=== PATIENT | male | born 1970 | race Caucasian/White ===

== ENCOUNTER 2017-06-20 08:28 | Emergency (ER) | payer SELFPAY ==
[2017-06-20] MEDS ORDERED: NS 0.9% 1000 ML* 2,000 ML IV ONE (09:02)
[2017-06-20 09:21] LABS: Hematocrit 61 % (42-52); Hemoglobin 21.7 g/dl (14.0-18.0); Mean Corpuscular HGB Conc 36 g/dl (31-36); Mean Corpuscular Hemoglobin 34 pg (27-31); Mean Corpuscular Volume 94 fL (80-94); Mean Platelet Volume 8 um3 (7.4-10.4); Red Blood Count 6.47 10^6/ul (4.0-5.4); Red Cell Distribution Width 13 % (10.5-15); White Blood Count 12.6 10^3/ul (3.5-10.8)
[2017-06-20 09:23] LABS: Add Diff/Slide Review? Slide Review Added; Comments Flag Yes
[2017-06-20 09:36] LABS: Troponin I 0.01 ng/mL (<0.04)
[2017-06-20 09:37] LABS: Albumin 5.1 g/dL (3.2-5.2); C Reactive Protein 15.76 mg/L (< 5.00); Calcium 10.7 mg/dL (8.6-10.3); Globulin 4.2 g/dL (2-4); Potassium 4.3 mmol/L (3.5-5.0); Total Bilirubin 0.7 mg/dL (0.2-1.0); Total Protein 9.3 g/dL (6.4-8.9)
[2017-06-20] MEDS ORDERED: Iohexol 300* (CONTRAST) 10 ML SDV IV ONE (10:10)
--- NOTE | 2017-06-20 10:23 | RAD ---
HISTORY: Subacute trauma, right-sided chest pain and vomiting COMPARISONS: None TECHNIQUE: Multiple contiguous axial CT scans were obtained of the chest, abdomen, and pelvis after the administration of intravenous contrast. Coronal and sagittal multiplanar reformations are submitted for review.. Oral contrast was not administered. Delayed images were obtained through the abdomen and pelvis. FINDINGS: CHEST NECK AND THYROID: The lower neck and thyroid are unremarkable. CHEST WALL: There is no lower cervical, axillary, or supraclavicular lymphadenopathy by size criteria. HEART AND PERICARDIUM: The heart is unremarkable. AORTA AND PULMONARY VASCULATURE: The aorta and pulmonary vasculature are normal. MEDIASTINUM: There is no mediastinal lymphadenopathy by size criteria. ARMANDO: There is no hilar lymphadenopathy by size criteria. AIRWAY AND ESOPHAGUS: The airway is unremarkable, without endobronchial filling defect. The esophagus is grossly normal. LUNG PARENCHYMA: The lungs are clear. PLEURA: No pleural abnormalities are noted. BONES AND SOFT TISSUES: No bone or soft tissue abnormalities are noted. ABDOMEN/PELVIS: LIVER: The liver is normal in shape, size, contour, and attenuation. BILE DUCTS: There is no intrahepatic or extrahepatic biliary dilatation. GALLBLADDER: The gallbladder is normal, without pericholecystic inflammatory change. PANCREAS: The pancreas is normal, without mass or ductal dilatation. SPLEEN: Normal in size and appearance. UPPER GI TRACT: Evaluation of the gastrointestinal tract is limited by incomplete gastric distention. The upper GI tract is unremarkable. SMALL BOWEL \T\ MESENTERY: The small bowel is normal in contour, course, and caliber. There is no obstruction or dilatation. COLON: The colon is normal in contour, course, caliber. There is no pericolonic inflammatory change. ADRENALS: Normal bilaterally. KIDNEYS: The kidneys are normal in shape, size, contour, and axis. There is no hydronephrosis or nephrolithiasis. BLADDER: The bladder is smooth in contour. PELVIC ORGANS: The prostate is mildly enlarged. The seminal vesicles are symmetric. AORTA: The aorta is normal. IVC: Unremarkable LYMPH NODES: There is no lymphadenopathy by size criteria. ABDOMINAL WALL: There is no evidence for abdominal wall hernia. BONES AND SOFT TISSUES: Unremarkable OTHER: None IMPRESSION: MILDLY ENLARGED PROSTATE. NO ACUTE CT PATHOLOGY OF THE VISUALIZED CHEST, ABDOMEN, OR PELVIS
[2017-06-20] MEDS ORDERED: Ketorolac INJ* 30 MG/ML 1 ML VIAL IV ONE (12:47)
[2017-06-20] MEDS ORDERED: NS 0.9% 1000 ML* 1,000 ML IV ONE (12:47)
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
[2017-06-20 14:51] VITALS: BP 171/100
== END 2017-06-20 14:54 | disposition home or self-care (01) ==
LOC: ED 08:28
DX: R07.89 Other chest pain (principal); E86.0 Dehydration; R11.2 Nausea with vomiting, unspecified
CPT/HCPCS: 36415; 71260; 74177; 80053; 83605; 84484; 85025; 85610; 86140; 93005; 96374; 99285; J1885; Q9967

== ENCOUNTER → 2019-04-12 12:57 | Emergency (ER) | payer OTHER ==
[~2019-04-12 12:57] MED LIST: Lidocaine 1% MPF ** 5 ML VIAL INJ ONE; Tetan/Diph/Pertus SYR(Tdap)* 0.5 ML SYR(BOOSTRIX) use SYR IM ONE
--- NOTE | 2019-04-12 14:14 | ED ---
Laceration/Wound HPI - HPI Summary HPI Summary: Pt. is a 48 y.o male who presents to the ER for laceration to left second digit of hand that occurred just prior to arrival. Pt. states he put his hand in a blending to unclog it when he accidentally turned on duplex trimmer and blade cut finger. Unaware of last tetanus. Sxs are mild in severity. No current modifying factors. - History of Current Complaint Stated Complaint: LT INDEX FINGER LAC PER PT Time Seen by Provider: 04/12/19 13:49 Hx Obtained From: Patient Pain Intensity: 0 - Allergy/Home Medications Allergies/Adverse Reactions: Allergies Allergy/AdvReac Type Severity Reaction Status Date / Time No Known Allergies Allergy Verified 04/12/19 14:57 PMH/Surg Hx/FS Hx/Imm Hx Previously Healthy: Yes Endocrine/Hematology History: Denies: Hx Diabetes Cardiovascular History: Denies: Hx Hypertension Sensory History: Denies: Hx Legally Blind, Hx Deafness Opthamlomology History: Denies: Hx Legally Blind Infectious Disease History: No Infectious Disease History: Denies: Traveled Outside the [place] in Last 30 Days - Family History Known Family History: Positive: Hypertension, Diabetes, Non-Contributory - Social History Occupation: Employed Full-time Lives: With Family Alcohol Use: Daily Substance Use Type: Reports: None Smoking Status (MU): Unknown if Ever Smoked Review of Systems Positive: Other - laceration to left second digit of hand All Other Systems Reviewed And Are Negative: Yes Physical Exam Triage Information Reviewed: Yes Vital Signs On Initial Exam: Initial Vitals Temp Pulse Resp BP Pulse Ox 98.6 F 108 16 191/122 99 04/12/19 13:02 04/12/19 13:02 04/12/19 13:02 04/12/19 13:02 04/12/19 13:02 Vital Signs Reviewed: Yes Appearance: Positive: Well-Appearing - Pt. sitting on chair in NAD. Family member present. Skin: Positive: Warm, Dry Head/Face: Positive: Normal Head/Face Inspection Eyes: Positive: Normal, EOMI Neck: Positive: Supple Musculoskeletal: Positive: Other - 2 linear 1cm lacerations noted to the distal aspect of second digit of left finger on the palmar aspect. Full ROM of digit. No bony tenderness. Neurological: Positive: Normal, CN Intact II-III Procedures - Laceration/Wound Repair 1 Location: upper extremity - second digit of left hand Description: Linear Anesthesia: 1.0%, Lido Length, Depth and Shape: 2 1cm linear lacerations Betadine Prep?: No - hibiclens Laceration/Wound Explored: clean Closure: Single Layer Suture Type: Nylon Number of Sutures: 8 Layer Closure?: No Sterile Dressing Applied?: Yes Diagnostics - Vital Signs Vital Signs Temp Pulse Resp BP Pulse Ox 04/12/19 13:02 98.6 F 108 16 191/122 99 - Laboratory Lab Statement: Any lab studies that have been ordered have been reviewed, and results considered in the medical decision making process. Laceration Repair Course/Dx - Course Course Of Treatment: Pt. presenting with simple finger laceration. Laceration repaired as noted above. Tetanus updated. Suture removal in 7-10 days. To return to er for redness, swelling, drainage from wound. - Differential Dx Differental Diagnoses: Laceration, Puncture Wound - Clinical Impression Provider Diagnoses: Finger laceration Discharge - Sign-Out/Discharge Documenting (check all that apply): Patient Departure Patient Received Moderate/Deep Sedation with Procedure: No - Discharge Plan Condition: Improved Disposition: HOME Patient Education Materials: Care For Your Stitches (ED) Referrals: [facility] [Outside] Additional Instructions: Suture removal in 7-10 days Keep wound clean and dry Tylenol or Motrin for pain as directed Return to ER for redness, swelling, or drainage from wound - Billing Disposition and Condition Condition: IMPROVED Disposition: Home
[2019-04-12 15:16] VITALS: BP 189/101
== END | disposition home or self-care (01) ==
LOC: ED 12:57
DX: S61.211A Laceration without foreign body of left index finger without damage to nail, initial encounter (principal); Z23 Encounter for immunization; W29.0XXA Contact with powered kitchen appliance, initial encounter; Y92.9 Unspecified place or not applicable
CPT/HCPCS: 12001; 90471; 90715; 99281